=== PATIENT | male | born 1980 | race Caucasian/White ===

== ENCOUNTER 2023-04-09 02:14 | Emergency (ER) | payer BC ==
[~2023-04-09] VITALS: Ht 172.7 cm; Wt 109.1 kg
[2023-04-09 02:16] VITALS: TEMP 98.1
[2023-04-09] MEDS ORDERED: normal saline 1000ml 1,000 ML IV ONE ×2 (02:30→04:10)
[2023-04-09] MEDS ORDERED: ketorolac trometh. 30mg/ml inj. IV ONE (02:30)
[2023-04-09] MEDS ORDERED: ondansetron/PF 4mg/2ml inj IV ONE (02:35)
[2023-04-09 02:44] LABS: BASOPHILS # (AUTO) 0.1 X10'3 (0-0.2); BASOPHILS % (AUTO) 0.5 % (0-1); EOSINOPHILS # (AUTO) 0.1 X10'3 (0-0.9); EOSINOPHILS % (AUTO) 1.4 % (0-6); HEMATOCRIT 42.5 % (42.0-52.0); HEMOGLOBIN 14.4 g/dl (14.0-17.9); LYMPHOCYTES % (AUTO) 49.5 % (21-51); MEAN CORPUSCULAR HEMOGLOBIN 29.9 PG (27.0-31.0); MEAN CORPUSCULAR HGB CONC 33.8 g/dL (33.0-36.5); MEAN CORPUSCULAR VOLUME 88.6 FL (78-98); MEAN PLATELET VOLUME 7.8 FL (7.4-10.4); MONOCYTES % (AUTO) 9.6 % (2-12); NEUTROPHILS # (AUTO) 3.9 X10'3 (1.8-7.7); PLATELET COUNT 378 X10'3 (140-440); RED CELL DISTRIBUTION WIDTH 12.7 % (11.5-14.5); WHITE BLOOD COUNT 10.1 X10'3 (4.5-11.0)
[2023-04-09] MEDS ORDERED: HYDROmorphone inj. 0.5 MG/0.5 ML DISP.SYRIN IV ONE ×2 (02:55→03:45)
[2023-04-09 02:58] LABS: ALANINE AMINOTRANSFERASE 36 U/L (12-78); ALBUMIN 3.7 G/DL (3.4-5.0); ALBUMIN/GLOBULIN RATIO 1.1 (1.1-1.5); ALKALINE PHOSPHATASE 84 IU/L (46-116); ANION GAP 8 (8-16); ASPARTATE AMINO TRANSFERASE 18 U/L (10-37); BILIRUBIN,TOTAL 0.2 MG/DL (0.1-1.0); BLOOD UREA NITROGEN 21 MG/DL (7-18); BUN/CREATININE RATIO 14.8 (10.0-20.0); CALCIUM 8.3 MG/DL (8.5-10.1); CHLORIDE 103 MMOL/L (99-107); CREATININE 1.42 MG/DL (0.60-1.10); GLUCOSE 123 MG/DL (70-104); LIPASE 36 U/L (16-77); POTASSIUM 3.4 MMOL/L (3.5-5.1); SODIUM 139 MMOL/L (135-145); TOTAL CARBON DIOXIDE 28.2 MMOL/L (24-32); eCRCL 66 ML/MIN; eGFR 55 ML/MIN
[2023-04-09] MEDS ORDERED: meperidine/PF 50mg/ml syringe IV ONE (04:25)
[2023-04-09 05:02] VITALS: RESP 18
[2023-04-09] MEDS ORDERED: HYDR-3965 PO (05:35)
[2023-04-09] MEDS ORDERED: IBUP-1984 PO (05:35)
[2023-04-09] MEDS ORDERED: FLO0.4C PO (05:35)
[2023-04-09 05:54] LABS: ALBUMIN 3.4 G/DL (3.4-5.0); ANION GAP 7 (8-16); BLOOD UREA NITROGEN 21 MG/DL (7-18); BUN/CREATININE RATIO 14.1 (10.0-20.0); CALCIUM 7.7 MG/DL (8.5-10.1); CHLORIDE 108 MMOL/L (99-107); CREATININE 1.49 MG/DL (0.60-1.10); GLUCOSE 125 MG/DL (70-104); SODIUM 141 MMOL/L (135-145); TOTAL CARBON DIOXIDE 25.8 MMOL/L (24-32); eCRCL 62 ML/MIN; eGFR 52 ML/MIN
[2023-04-09 06:05] VITALS: BP 115/89; PULSE 86; O2SAT 97
== END 2023-04-09 06:06 | disposition home or self-care (01) ==
LOC: ER 02:15
DX: N20.0 Calculus of kidney (principal); R11.2 Nausea with vomiting, unspecified; Z88.5 Allergy status to narcotic agent; Z79.899 Other long term (current) drug therapy
CPT/HCPCS: 36415; 74176; 80048; 80053; 83690; 85025; 93005; 96361; 96374; 96375; 96376; 99285; J1170; J1885; J2175; J2405; J7030; A4615

== ENCOUNTER 2025-01-29 01:36 | Inpatient (IN) | payer BC ==
[~2025-01-29] VITALS: Ht 172.7 cm; Wt 115.0 kg
[2025-01-29 01:52] LABS: MEAN PLATELET VOLUME 7.7 FL (7.4-10.4); RED CELL DISTRIBUTION WIDTH 12.8 % (11.5-14.5)
--- NOTE | 2025-01-29 02:00 | Physician Documentation ---
History of Present Illness ~ Chief Complaint: Flank Pain Stated Complaint: POSS KIDNEY STONES Time Seen by MD: 01:57 Mode of Arrival: POV HPI Patient presents to the emergency room for evaluation of right-sided flank pain onset 1 hour prior to arrival. Patient states this feels similar to previous kidney stone. He has had nothing for the pain. Medication Reconciliation Allergies: Coded Allergies: morphine (Verified Allergy, Unknown, PSYCHOSIS, 01/29/25) Review of Systems ROS All review of systems negative except as per HPI Physical Exam Vital Signs: Temperature: 97.1, Source: Oral, Heart Rate: 69, Respiratory Rate: 10, BP: 133/83, Pulse Oximetry: 100, Weight: 115.000 Oxygen Flow Rate: 0 Physical Exam General: Patient is awake, alert, oriented x4 in moderate distress Head: Normocephalic and atraumatic. Eyes: Conjunctival normal. EOMI. PERRL. ENT: Mucous membranes moist. Neck: Supple, trachea is midline. Chest: Clear to auscultation bilaterally without rales, rhonchi, or wheezes. There is no accessory muscle use or retractions. Cardiac: Tachycardic and regular without murmurs, gallops, or rubs. Abd: Soft, nondistended, nontender, with normoactive bowel sounds. No guarding, rebound, or rigidity. Back: Noted right-sided CVA tenderness to palpation Progress Results/Orders Results/Orders Orders - LUIS MIGUEL SCHILLING MD Urinalysis, Cult If Indicated (01/29/25 01:40) Completed Orders - LUIS MIGUEL SCHILLING MD Cbc/Diff (01/29/25 01:40) BMP (01/29/25 01:40) Lipase (01/29/25 01:40) CMP (01/29/25 01:40) Ketorolac Trometh 15mg/Ml Vial (Toradol (01/29/25 02:00) Fentanyl/Pf (Fentanyl 0.05 Mg/Ml Syringe (01/29/25 02:00) Ondansetron Inj. (Zofran 4mg/2ml Vial) (01/29/25 02:00) Medications Received in ER Medications (Trade) Dose Ordered Sig/Valerio Route PRN Reason Start Time Stop Time Status Last Admin Dose Admin (Toradol injection) 15 mg ONCE ONCE IV 01/29/25 02:00 01/29/25 02:01 DC 01/29/25 02:07 15 MG (fentaNYL 0.05 MG/ML syringe) 50 mcg ONCE ONCE IV 01/29/25 02:00 01/29/25 02:01 DC 01/29/25 02:08 50 MCG (Zofran 4mg/2ml vial) 8 mg ONCE ONCE IV 01/29/25 02:00 01/29/25 02:01 DC 01/29/25 02:07 8 MG Vital Signs 01/29/25 01/29/25 01:38 01:49 Temp 97.1 97.1 Pulse 82 69 Resp 18 10 B/P (MAP) 163/102 133/83 (100) Pulse Ox 99 100 O2 Flow Rate 0 0 Laboratory Tests Test 01/29/25 01:46 White Blood Count 7.7 Red Blood Count 4.92 Hemoglobin 14.4 Hematocrit 42.8 Mean Corpuscular Volume 86.9 Mean Corpuscular Hemoglobin 29.3 Mean Corpuscular Hemoglobin Concent 33.7 Red Cell Distribution Width 12.8 Platelet Count 364 Mean Platelet Volume 7.7 Neutrophils (%) (Auto) 36.6 L Lymphocytes (%) (Auto) 51.2 H Monocytes (%) (Auto) 10.3 Eosinophils (%) (Auto) 1.4 Basophils (%) (Auto) 0.5 Neutrophils # (Auto) 2.8 Lymphocytes # (Auto) 4.0 Monocytes # (Auto) 0.8 Eosinophils # (Auto) 0.1 Basophils # (Auto) 0.0 CBC Comment Sodium Level 143 Potassium Level 4.2 Chloride Level 108 H Carbon Dioxide Level 28.9 Anion Gap 6 L Blood Urea Nitrogen 19 H Creatinine 1.20 H Estimated GFR/1.73 m2 66 BUN/Creatinine Ratio 15.8 Glucose Level 107 H Calcium Level 8.9 Total Bilirubin 0.3 Aspartate Amino Transf (AST/SGOT) 16 Alanine Aminotransferase (ALT/SGPT) 27 Alkaline Phosphatase 93 Total Protein 7.4 Albumin 3.9 Globulin 3.5 Albumin/Globulin Ratio 1.1 Lipase > 375 H Chemistry Comments Medical Decision Making Findings Patient presents to the emergency room for evaluation of abdominal pain. Differentials include but are not limited to gastritis cholecystitis pancreatitis diverticulitis kidney stone pyelonephritis small-bowel obstruction therefore emergent labs ordered. Patient is suffering from pancreatitis. He does not endorse significant amount of alcohol consumption. Unknown cause for patient's pancreatitis. Liver enzymes are reassuring. We will admit for further investigation. Departure Admitted to Inpatient Unit: yes, to hospitalist Impression: Primary Impression: Pancreatitis Condition: Guarded Referrals: NO PRIMARY CARE PROVIDER (PCP) Signature Scribe Signature: No scribe Attestation: The note accurately reflects work and decisions made by me.Luis Miguel Schilling MD 01/29/25 02:41 LUIS MIGUEL SCHILLING MD Jan 29, 2025 01:59
[2025-01-29 02:07] LABS: CREATININE 1.20 MG/DL (0.60-1.10); TOTAL CARBON DIOXIDE 28.9 MMOL/L (24-32); eCRCL 76 ML/MIN; eGFR 66 ML/MIN
[2025-01-29] MEDS: ondansetron/PF 4mg/2ml inj IV ONE ×2 (02:07→16:31)
[2025-01-29] MEDS: ketorolac trometh 15mg/ml vial 15 MG/ML ML IV ONE (02:07)
[2025-01-29] MEDS: fentaNYL/PF 50MCG/1 ML 2ML syringe IV ONE ×2 (02:08→02:53)
[2025-01-29] MEDS: normal saline 1000ML IV soln IVB ONE (02:51)
[2025-01-29] MEDS ORDERED: magnesium hydroxide 30ml (MOM) UD suspension PO PRN (03:35)
[2025-01-29] MEDS ORDERED: potassium Cl 40MEQ/1/2NS 520ml 520 ML IV PRN (03:35)
[2025-01-29] MEDS ORDERED: mag hydrox/Alum hydrox/simeth 30ml oral suspension PO PRN (03:35)
[2025-01-29] MEDS ORDERED: magnesium sulf-water 2g/50mL 50 ML IV PRN (03:35)
[2025-01-29] MEDS ORDERED: normal saline 1000ml 1,000 ML IV SCH (03:35)
[2025-01-29] MEDS ORDERED: magnesium sulf-water 4G/100mL 100 ML IV PRN (03:35)
[2025-01-29] MEDS ORDERED: potassium Cl 20 mEq SR tablet PO PRN ×2 (03:35)
[2025-01-29] MEDS ORDERED: magnesium Cl slow-release 64mg tablet PO PRN (03:35)
--- NOTE | 2025-01-29 03:35 | ELECTROCARDIOGRAPH REPORT ---
[facility] Test Date: 2025-01-29 Test Time: 03:32:59 Pat Name: RONY LEIGH Department: EMERGENCY ROOM Room: ED 8 Gender: M Office Specialist: : 1980 Requested By: SHOSHANA MORENO Order Number: [id number] Reading MD: Measurements Intervals [place] Rate: 78 P: 48 WA: 153 QRS: 33 QRSD: 109 T: 5 QT: 388 QTc: 442 Interpretive Statements Sinus rhythm Low voltage, precordial leads Abnormal R-wave progression, early transition Please click the below link to view image of tracing.
--- NOTE | 2025-01-29 03:44 | HISTORY AND PHYSICAL-Residence ---
History & Physical Providers to CC Resident Creating Document: SHOSHANA MORENO RES ~ History of Present Illness Reason for Admit\Complaint: Left flank pain History of Present Illness The 44-year-old male presented to the ER with a chief concern of worse left flank pain that started at 12:30 a.m.. Mentioned that he was resting in the bed but not completely asleep and suddenly felt the pain. It is squeezing type of pain and then it gets worse like sharp shooting kind of pain and so his drove him to the ER. Has nausea but denies any vomiting. Denies any dysuria, blood in urine, nausea or vomiting, diarrhea, chest pain shortness of breaths or any fall. Mentioned that he had recurrent stones on the right side and the last one was about few years back. Never had any procedures likely lithotripsy or ureteral stent placement done for it and denies any hydroureteronephrosis in the past. Mentioned that he was heavy alcoholic about 15-20 years back but did not drink any alcohol in the last few days. Had cholecystectomy about 10 years back for recurrent abdominal pain. Did not eat or drink anything since the pain started and so is unsure if the pain is affected by food intake. He does not want to take morphine as it makes him psychotic but he he has almost screaming in the ER with pain and so received fentanyl Allergies: Coded Allergies: morphine (Verified Allergy, Unknown, PSYCHOSIS, 01/29/25) Home Medications Home Medications Active Past Medical History Past Medical History History of tobacco abuse, meth abuse, cocaine abuse, marijuana abuse, LSD, speed, alcohol abuse, recurrent right renal stones, recurrent unspecified abdominal pain-resolved with a cholecystectomy Past Surgical History Surgical History Comment Cholecystectomy, sinus surgery Past Social History Social History Comment Lives with his . His last smoke of cigarette was about 20 years back and smoked a pack of cigarettes per day for 2-3 years before that. He used to drink heavily (12-13 beers and whiskey every day) for few years about 20 years back and now, drinks one beer once a month. Remote history of smoking and snorting meth, cocaine, marijuana, LSD and speed. The last time he used any recreational drug was in 2000. Denies any IV drug abuse ROS ROS Constitutional: No fever, chills, dizziness, weakness, weight gain or loss Eyes: No pain, erythema, discharge, blurring of vision ENT: No sore throat, epistaxis, tinnitus Cardiovascular: No chest pain, chest pressure, chest discomfort, palpitations, syncope, lower extremity edema, paroxysmal nocturnal dyspnea Respiratory: No shortness of breath, cough, hemoptysis Gastrointestinal: Nausea present. Normal appetite. No vomiting, diarrhea, constipation, hematemesis, abdominal pain, bloating, melena or fresh blood Genitourinary: Left flank pain present. No frequency, urgency, nocturia, hematuria or dysuria Musculoskeletal: Left flank pain present. No arthralgias Integumentary: No change in skin, hair, nails. No swelling, bruising, abrasions Neurologic: No headache, neck pain, numbness or tingling of the extremities, weakness Psychiatric: No delusions, depression, loss of interest in normal activity or change in sleep pattern, hallucinations, suicidal ideations Endocrine: No fatigue, weakness, polydipsia, polyuria, change in appetite, heat or cold intolerance, sweating, dry skin Hematological: No bleeding, petechiae, bruising Allergies: No asthma or urticaria Exam Vitals: Vital Signs Date Time Temp Pulse Resp B/P (MAP) Pulse Ox O2 Delivery O2 Flow Rate FiO2 01/29/25 03:10 97.1 72 9 131/90 (104) 98 0 General: Alert and oriented x4. In acute distress due to pain HEENT: Normocephalic and atraumatic. Pupils equal round reactive to light and accommodation. Extraocular movements intact. Oral and nasal mucosa moist Neck: Trachea is in midline. No masses or JVD Chest: Bilateral normal breath sounds. No crackles, rhonchi or wheezes Cardiovascular: Regular rate and rhythm. S1-S2 normal. No rubs or murmurs Abdomen: Soft, nontender nondistended. Normoactive bowel sounds. Tenderness in the left lower flank region. No costovertebral angle tenderness Extremities: No cyanosis, clubbing or edema Central Nervous System: No gross sensory or motor deficits. CN II to XII grossly. No cerebellar signs Musculoskeletal: No significant spinal abnormalities Skin: Warm and dry Diagnostic Data Last Recorded Lab Results: 01/29/25 0146 01/29/25 0146 Advance Care Planning Advanced Care plannin - 30 Minutes Additional Plan Left flank pain Possible renal colic History of recurrent right renal stones Pending UA and urine tox Received fentanyl 50 mg IV once, fentanyl 75 mg IV once and Toradol 15 mg IV once in the ER Does not want to take morphine as it maximum psychotic Continue Jackson 5/325 mg and Jackson 10/325 mg p.o. q.4h p.r.n. for moderate to severe pain respectively Started Toradol 30 mg IM q.6h p.r.n. for pain. Likely has CKD stage II. Discontinue Toradol in a day or two Started tamsulosin 0.4 mg PO HS Started Ringer's lactate at 100 cc/hour Received 2 L normal saline bolus in the ER Started clear liquid diet. Advance as tolerated Elevated lipase level Denies drinking alcohol in the last few days Pending urine Tox and ethanol level No epigastric or left upper quadrant tenderness or vomitings. Nausea present Total bilirubin, AST , ALT and alkaline phosphatase within normal limits. S/p cholecystectomy about 10 years back Pending abdomen/pelvis CT Follow up lipase levels daily Lipid panel ordered Possible ELISABETH on CKD Continue IV fluids Continue to monitor RFTs History of polysubstance abuse-meth, cocaine, marijuana, LSD, speed Urine tox ordered Mentioned that he is clean since 2000 # Pending chest x-ray, EKG Shoshana Moreno MD Internal Medicine Resident, PGY 3 Date of Service: Jan 29, 2025 Billing Provider: DESTINY LEE MD Addendum Attestation I agree with the residents assessment and plan as below: Plan: empiric abx follow cultures CTAP pain control with NSAID CCT 50 min using HIPPA compliant A/V technology SHOSHANA MORENO RES Jan 29, 2025 03:44 DESTINY LEE MD Jan 29, 2025 04:51
[2025-01-29] MEDS: HYDROcodone/acetaminophen 10/325mg tab PO PRN (04:11)
[2025-01-29 04:23] LABS: ETHANOL < 10 MG/DL (<10)
--- NOTE | 2025-01-29 04:48 | RADIOLOGY REPORT ---
Exam: CT CT ABDOMEN PELVIS History: assess pancreatitis Comparison Study: CT CT ABDOMEN PELVIS on DOS: 04/09/23 Technique: Multidetector spiral CT of the abdomen was performed from lung bases to pubic symphysis. Imaging was performed without IV contrast. Axial, coronal and sagittal multiplanar reformats were obtained from the axial data set by the technologist. Radiation Dose : 1. Abdomen/Pelvis: CTDIvol 32.19 mGy, DLP 1951.73 mGy*cm. Findings: Evaluation of solid organs is limited due to lack of intravenous contrast use. Lung Bases: No acute or significant lung base finding. Normal heart size. No pleural or pericardial effusion. Liver: The liver is normal in size. No focal lesions. Gallbladder and Biliary Tree: Gallbladder not clearly identified. Spleen: Unremarkable Pancreas: The pancreas is grossly normal in appearance. Adrenal Glands: Unremarkable Kidneys: Moderate left hydroureteronephrosis and perinephric inflammatory change secondary to a partially obstructing distal ureteral calculus measuring approximately 5 mm in diameter. Additional punctate nonobstructive bilateral pelvocaliceal calculi noted. Bladder: Grossly unremarkable for degree of distention. Bowel: The stomach is grossly normal in appearance. Small bowel and colon are normal in caliber and distribution. The appendix is normal. Ascites: Absent Lymphadenopathy: No mesenteric, retroperitoneal or periportal lymphadenopathy. Abdominal Wall and Mesentery: Unremarkable. Vasculature: The visualized abdominal aorta is normal in size and caliber. Evaluation of abdominal and pelvic vessels is limited due to lack of intravenous contrast. Pelvic Organs: Unremarkable Musculoskeletal: No aggressive focal bony lesions, acute fractures or dislocation. IMPRESSION: 1. Moderate left hydroureteronephrosis and perinephric inflammatory change secondary to a partially obstructing distal ureteral calculus measuring approximately 5 mm in diameter. 2. Additional punctate nonobstructive bilateral pelvocaliceal calculi noted. 3. The pancreas is grossly normal in appearance. Radiation optimization: All CT scans at this facility use at least one of these dose optimization techniques: automated exposure control mA and/or kV adjustment per patient size (includes targeted exams where dose is matched to clinical indication) or iterative reconstruction.
[2025-01-29 05:00] VITALS: BP 134/82; PULSE 82; RESP 20; TEMP 97.4; O2SAT 98
[2025-01-29] MEDS: ketorolac trometh 30MG/ML vial 30 MG/ML VIAL IV PRN (05:18)
[2025-01-29] MEDS: ringers solution, lacted 1,000 ML IV SCH (05:26)
[2025-01-29 06:07] LABS: CHOL/HDL RATIO 4.4 (0.00-4.99); LDL CHOLESTEROL 120 MG/DL (50-100)
[2025-01-29] MEDS: K and/or MAG REPLACEMENT MC SCH (08:00)
[2025-01-29] MEDS: HYDROcodone/acetaminophen 5mg/325mg tablet PO PRN (11:57)
[2025-01-29] MEDS: ondansetron/PF 4mg/2ml inj IV PRN (12:03)
[2025-01-29] MEDS ORDERED: ondansetron/PF 4mg/2ml inj IM ONE (16:05)
[2025-01-29 18:00] VITALS: BP 125/78; PULSE 52; RESP 16; TEMP 97.4; O2SAT 94
[2025-01-29] MEDS: enoxaparin 40mg/0.4ml syringe SQ SCH (21:02)
[2025-01-29 22:00] VITALS: BP 108/50; PULSE 67; RESP 19; TEMP 98.3; O2SAT 98
[2025-01-30 05:30] LABS: MEAN PLATELET VOLUME 7.8 FL (7.4-10.4); RED CELL DISTRIBUTION WIDTH 13.1 % (11.5-14.5)
[2025-01-30 05:48] LABS: APTT 32 SECONDS (22-32); INR 1.1 INR
[2025-01-30 05:55] LABS: CHOL/HDL RATIO 4.5 (0.00-4.99); CREATININE 1.84 MG/DL (0.60-1.10); LDL CHOLESTEROL 100 MG/DL (50-100); PHOSPHORUS 3.7 MG/DL (2.3-4.5); TOTAL CARBON DIOXIDE 28.5 MMOL/L (24-32); eCRCL 50 ML/MIN; eGFR 40 ML/MIN
[2025-01-30 06:00] VITALS: BP 116/62; PULSE 74; RESP 17; TEMP 97.9; O2SAT 93
[2025-01-30 06:10] LABS: LEUKOCYTE ESTERASE ,URINE NEGATIVE (Neg); NITRITES, URINE NEGATIVE (Neg); OCCULT BLOOD,URINE NEGATIVE (Neg)
[2025-01-30 06:15] LABS: UA COLLECTION TYPE CLN CATCH MIDSTREAM
[2025-01-30 06:32] LABS: URINE AMPHETAMINE SCREEN NEGATIVE (Neg); URINE BARBITUATE SCREEN NEGATIVE (Neg); URINE BENZODIAZEPINES SCREEN NEGATIVE (Neg); URINE CANNABINOID SCREEN NEGATIVE (Neg); URINE COCAINE SCREEN NEGATIVE (Neg); URINE METHADONE SCREEN NEGATIVE (Neg); URINE OPIATE SCREEN POSITIVE (Neg); URINE PHENCYCLIDINE SCREEN NEGATIVE (Neg)
--- NOTE | 2025-01-30 07:52 | CONSULTATION ---
DATE OF CONSULTATION: 01/29/2025 DICTATING PHYSICIAN: Rizwan Waller MD HISTORY OF PRESENT ILLNESS: A 44-year-old male with a history of nephrolithiasis, presented himself to the Emergency Room this morning with several hours of acute onset left-sided flank pain. He has a history of stones and has passed 2 or 3 stones in his lifetime and never required an intervention. This time around, he had severe pain and presented himself to the Emergency Room and I was asked to consult when he was seen to be passing a stone. He was admitted apparently for pain control. PAST SURGICAL HISTORY: Cholecystectomy and spinal surgery. PAST MEDICAL HISTORY: Nephrolithiasis with also a history of tobacco abuse, methamphetamine abuse, cocaine abuse, marijuana abuse, LSD, and alcohol abuse. ALLERGIES: MORPHINE. MEDICATIONS: None. SOCIAL HISTORY: He lives with his . He denies cigarette smoking for about 20 years. He has a history of alcohol abuse, but none for 20 years. REVIEW OF SYSTEMS: 10-point review of systems negative except for HPI. PHYSICAL EXAMINATION: VITAL SIGNS: Blood pressure is 131/90, respirations 18, pulse is 72, temperature 97.1. GENERAL: In general, he is in mild distress, primarily from nausea. LABORATORY DATA: White count is 7000. BUN and creatinine are 19 and 1.2. IMAGING: CT scan is reviewed in detail revealed a firm 4 mm calculus in the left distal ureter about 3 cm proximal to the ureterovesical junction. ASSESSMENT: Pain secondary to small left distal ureteral calculus. RECOMMENDATIONS: The patient is a candidate for expulsive therapy to pass the stone. Recommend Flomax, hydration, strain urine, and discharge to home if pain allows. We will follow progress. Rizwan Waller MD TID: [id number] RECEIPT: [id number] ISABEL/LESVIA
[2025-01-30 08:00] VITALS: RESP 14; O2SAT 93
[2025-01-30 10:00] VITALS: BP 116/71; PULSE 73; RESP 15; TEMP 98.5; O2SAT 92
[2025-01-30] MEDS: ringers solution, lacted 1,000 ML IV ONE (10:59)
--- NOTE | 2025-01-30 13:28 | PROGRESS NOTE ---
Daily Progress Note Providers to CC ~ feels better today less pain in the left flank tolerating medication fine Central Line/PICC still needed: No Cortes-Non Protocol Cortes Indications Met/Not Met: F/C Indications Not Met Antibiotic Timeout Antibiotic Ordered?: Yes MRSA Education MRSA Education Provided to pt: Yes Subjective As above Objective Vital Signs Date Time Temp Pulse Resp B/P (MAP) Pulse Ox O2 Delivery O2 Flow Rate FiO2 01/30/25 10:00 98.5 73 15 116/71 (86) 92 Room Air 01/29/25 04:18 0 Vital signs, stable ,afebrile. Pulse Oximetry reflects adequate oxygenation. General: well developed, well nourished. Awake , alert, and oriented x4, resting comfortably in the bed, in no acute distress . Skin: Warm, dry, no pallor, no rash or petechiae. HEENT: Atraumatic, normocephalic, EOMI, anicteric sclera B; pink conjunctiva; PERRLA, normal oropharynx, moist oral and nasal mucosa. Tympanic membrane , nose , throat clear. Neck: Trachea midline. Supple, full range of motion, no JVD, bruit , hepatojugular reflex , lymphadenopathy or masses, or other lesions Cardiac: Regular rhythm, regular rate no murmurs, rubs, or gallops. Normal S1 and S2, no S3 noticed. PMI is normal. Respiratory: Equal breath sounds bilaterally, no tachypnea; lungs clear to auscultation bilaterally, no wheezing ,rub or rales, or crackles. Chest wall is symmetric and without deformity. No signs of trauma. Chest wall is nontender. No signs of respiratory distress. Resonance is normal upon percussion bilaterally. Gastrointestinal: Abdomen symmetric, non-distended, soft, non-tender, normal bowel sounds x4 quadrant, normoactive, no hepatosplenomegaly , no masses , no bruit, no flank pain bilaterally. No voluntary guarding, rebound, or rigidity. No tenderness to percussion. No pulsatile masses. Equal femoral pulses. No Alcocer's sign or McBurney point tenderness. Back; no CVA tenderness bilaterally, no deformities. Neck and back are without deformity as well. No tenderness noted on palpation of the spinous processes. Spinous processes are midline. Cervical, thoracic, and lumbar paraspinal muscles are not tender and are without spasm. : normal external genitalia, without lesions, swelling, masses or tenderness. Musculoskeletal: Extremities, normal range of motion, non-tender, muscle strength 5/5 x 4. Negative Homans signs bilaterally on lower extremity. Distal pulses full symmetrical, no clubbing, cyanosis , edema. Neurological: Speech is clear, alert, and oriented x 4. No motor or sensory deficit, deep tendon reflexes normal, cerebellar intact. Cranial nerves II-XII intact. Psych: Alert and or appropriate, normal affect. Vascular: Good distal pulses, which are equal x4; capillary refill less than 2 seconds. Lymphatic, no lymphadenopathy. Result Diagram: 01/30/25 0505 01/30/25 0505 Coagulation Studies Laboratory Tests Test 01/30/25 05:05 Prothrombin Time 10.8 SECONDS (9.0-12.0) INR International Normalized Ratio 1.1 INR Activated Partial Thromboplast Time 32 SECONDS (22-32) Coagulation Comments Problem\Assessment\Plan Assessment/ Plan Left flank pain Acute left side renal colic History of recurrent right renal stones Appreciate urologist Assistance and expertise Completed UA and urine tox Received fentanyl 50 mg IV once, fentanyl 75 mg IV once and Toradol 15 mg IV once in the ER Does not want to take morphine as it maximum psychotic Continue [place] 5/325 mg and [place] 10/325 mg p.o. q.4h p.r.n. for moderate to severe pain respectively Started Toradol 30 mg IM q.6h p.r.n. for pain. Likely has CKD stage II. Discontinue Toradol in a day or two Started tamsulosin 0.4 mg PO HS Started Ringer's lactate at 100 cc/hour Received 2 L normal saline bolus in the ER Started clear liquid diet. Advance as tolerated Acute pancreatitis Denies drinking alcohol in the last few days Pending urine Tox and ethanol level No epigastric or left upper quadrant tenderness or vomitings. Nausea present Total bilirubin, AST , ALT and alkaline phosphatase within normal limits. S/p cholecystectomy about 10 years back Completed abdomen/pelvis CT Follow up lipase levels daily Lipid panel ordered Possible ELISABETH on CKD Continue IV fluids Continue to monitor RFTs History of polysubstance abuse-meth, cocaine, marijuana, LSD, speed Urine tox ordered Mentioned that he is clean since 2000 Sepsis Screening Reassessment Date: Jan 30, 2025 Date of Service: Jan 30, 2025 Billing Provider: WASHINGTON KIM MD Common Visit Codes: [id number] INP/OBS CARE(HIGH) WASHINGTON KIM MD Jan 30, 2025 13:28
[2025-01-30] MEDS ORDERED: TAMS-55 PO (14:42)
[2025-01-30] MEDS ORDERED: HYDR-3965 PO (14:42)
--- NOTE | 2025-01-30 16:57 | DISCHARGE SUMMARY ---
Discharge Summary Providers to Feels better today asking to be discharged home, was cleared for discharge by urologist as well ~ Discharge Summary Assessment BILATERAL KIDNEY STONES Left ureter calculus Left side moderate hydronephrosis Left-sided renal colic acute Acute kidney injury secondary to vasomotor nephropathy Acute pancreatitis History of polysubstance abuse, cocaine LSD speed amphetamine Admission Diagnosis: right flank pain Admission Diagnosis Comment: BILATERAL KIDNEY STONES Left ureter calculus Left side moderate hydronephrosis Left-sided renal colic acute Acute kidney injury secondary to vasomotor nephropathy Acute pancreatitis History of polysubstance abuse, cocaine LSD speed amphetamine Hospital Course DATE OF ADMISSION: January 29, 2025 DATE OF DISCHARGE: January 30, 2025 Discharge Diagnosis\Comment: BILATERAL KIDNEY STONES Left ureter calculus Left side moderate hydronephrosis Left-sided renal colic acute Acute kidney injury secondary to vasomotor nephropathy Acute pancreatitis History of polysubstance abuse, cocaine LSD speed amphetamine Operations\Procedures: Non Consultants: Urologist Complications: Non Condition on DC: Stable Discharge Summary: The 44-year-old male presented to the ER with a chief concern of worse left flank pain that started at 12:30 a.m.. Mentioned that he was resting in the bed but not completely asleep and suddenly felt the pain. It is squeezing type of pain and then it gets worse like sharp shooting kind of pain and so his drove him to the ER. Has nausea but denies any vomiting. Denies any dysuria, blood in urine, nausea or vomiting, diarrhea, chest pain shortness of breaths or any fall. Mentioned that he had recurrent stones on the right side and the last one was about few years back. Never had any procedures likely lithotripsy or ureteral stent placement done for it and denies any hydroureteronephrosis in the past. Mentioned that he was heavy alcoholic about 15-20 years back but did not drink any alcohol in the last few days. Had cholecystectomy about 10 years back for recurrent abdominal pain. Did not eat or drink anything since the pain started and so is unsure if the pain is affected by food intake. He does not want to take morphine as it makes him psychotic but he he has almost screaming in the ER with pain and so received fentanyl; after admission patient was extensively evaluated treated, as well as consulted by urology DrGabriela, today he is feeling better asking to be discharged home for emergency family reasons, I explained to the patient to continue inpatient treatment anemia palpation, patient elected to be discharged , he understood, risk of severe complications and . He will be discharged in stable condition recommended to return to emergency department if condition worsens, medication reconciled, follow-up PCP Urology in two days, today on physical exam Vital signs, stable ,afebrile. Pulse Oximetry reflects adequate oxygenation. General: well developed, well nourished. Awake , alert, and oriented x4, resting comfortably in the bed, in no acute distress . Skin: Warm, dry, no pallor, no rash or petechiae. HEENT: Atraumatic, normocephalic, EOMI, anicteric sclera B; pink conjunctiva; PERRLA, normal oropharynx, moist oral and nasal mucosa. Tympanic membrane , nose , throat clear. Neck: Trachea midline. Supple, full range of motion, no JVD, bruit , hepatojugular reflex , lymphadenopathy or masses, or other lesions Cardiac: Regular rhythm, regular rate no murmurs, rubs, or gallops. Normal S1 and S2, no S3 noticed. PMI is normal. Respiratory: Equal breath sounds bilaterally, no tachypnea; lungs clear to auscultation bilaterally, no wheezing ,rub or rales, or crackles. Chest wall is symmetric and without deformity. No signs of trauma. Chest wall is nontender. No signs of respiratory distress. Resonance is normal upon percussion bilaterally. Gastrointestinal: Abdomen symmetric, non-distended, soft, non-tender, normal bowel sounds x4 quadrant, normoactive, no hepatosplenomegaly , no masses , no bruit, no flank pain bilaterally. No voluntary guarding, rebound, or rigidity. No tenderness to percussion. No pulsatile masses. Equal femoral pulses. No Alcocer's sign or McBurney point tenderness. Back; no CVA tenderness bilaterally, no deformities. Neck and back are without deformity as well. No tenderness noted on palpation of the spinous processes. Spinous processes are midline. Cervical, thoracic, and lumbar paraspinal muscles are not tender and are without spasm. : normal external genitalia, without lesions, swelling, masses or tenderness. Musculoskeletal: Extremities, normal range of motion, non-tender, muscle strength 5/5 x 4. Negative Homans signs bilaterally on lower extremity. Distal pulses full symmetrical, no clubbing, cyanosis , edema. Neurological: Speech is clear, alert, and oriented x 4. No motor or sensory deficit, deep tendon reflexes normal, cerebellar intact. Cranial nerves II-XII intact. Psych: Alert and or appropriate, normal affect. Vascular: Good distal pulses, which are equal x4; capillary refill less than 2 seconds. Lymphatic, no lymphadenopathy. *Problems/Diagnosis: (1) Calculus of kidney Status: Acute (2) Renal colic Status: Acute (3) Pancreatitis Status: Acute Total Time Spent on D/C: > 30 Minutes Date of Service: Jan 30, 2025 Billing Provider: WASHINGTON KIM MD Common Visit Codes: 26201-EJW/OBS DISCH DAY >30min WASHINGTON KIM MD Jan 30, 2025 16:57
--- NOTE | 2025-01-31 04:43 | PROGRESS NOTE ---
DATE: 01/30/2025 DICTATING PHYSICIAN: Rizwan Waller MD SUBJECTIVE: Over 24-hour events none. Pain scores are low at 0-3. Vitals are stable. LABORATORY DATA: White count is 6.7. Creatinine is up slightly to 1.84. ASSESSMENT: Small distal ureteral calculus. I believe the patient is a good candidate for outpatient management. PLAN: Okay to discharge home. He will follow up in the office to see me in about 1 week with a KUB prior. Rizwan Waller MD TID: [id number] RECEIPT: [id number] MAREK
== END 2025-01-30 15:40 | disposition home or self-care (01) | DRG 438 ==
LOC: ER 01:36 → ED HOLD 03:20 → ORTHO 4S 04:58
PROVIDERS: ADMIT Internal Medicine; ATTEND Family Medicine
DX: K85.90 Acute pancreatitis without necrosis or infection, unspecified (principal); N17.0 Acute kidney failure with tubular necrosis; N13.2 Hydronephrosis with renal and ureteral calculous obstruction; F19.10 Other psychoactive substance abuse, uncomplicated; Z88.5 Allergy status to narcotic agent; Z90.49 Acquired absence of other specified parts of digestive tract
CPT/HCPCS: 36415; 74176; 80053; 80061; 80305; 80320; 81003; 83036; 83605; 83690; 83735; 84100; 84132; 85025; 85610; 85730; 87040; 87081; 93005; 96374; 96375; 99285; G0378; J1171; J1650; J1885; J2405; J3010; J7030; J7120

== ENCOUNTER 2025-02-01 19:13 | Inpatient (IN) | payer BC ==
[~2025-02-01] VITALS: Ht 172.7 cm; Wt 104.3 kg
[~2025-02-01 19:13] MED LIST: HYDR-3965 PO; TAMS-55 PO
[2025-02-01 20:18] LABS: CREATININE 1.84 MG/DL (0.60-1.10); MEAN PLATELET VOLUME 8.5 FL (7.4-10.4); RED CELL DISTRIBUTION WIDTH 12.6 % (11.5-14.5); TOTAL CARBON DIOXIDE 27.9 MMOL/L (24-32); eCRCL 50 ML/MIN; eGFR 40 ML/MIN
[2025-02-01 21:46] LABS: LEUKOCYTE ESTERASE ,URINE NEGATIVE (Neg); NITRITES, URINE NEGATIVE (Neg); OCCULT BLOOD,URINE NEGATIVE (Neg)
[2025-02-01 21:53] LABS: UA COLLECTION TYPE CLN CATCH MIDSTREAM
[2025-02-01 21:54] LABS: MUCUS STRANDS MODERATE /LPF (Neg); SQUAMOUS EPITHELIAL CELL,UR NONE SEEN /LPF (FEW)
[2025-02-01] MEDS: ondansetron/PF 4mg/2ml inj IV ONE (23:03)
[2025-02-01] MEDS: normal saline 1000ml 1,000 ML IV ONE (23:03)
[2025-02-01] MEDS: ketorolac trometh 30MG/ML vial 30 MG/ML VIAL IV ONE (23:03)
[2025-02-02] VITALS (18 sets, daily range): BP systolic 115–153; BP diastolic 65–92; PULSE 60–96; RESP 12–18; TEMP 97.5–98.2; O2SAT 91–99
--- NOTE | 2025-02-02 00:33 | RADIOLOGY REPORT ---
Exam: CT CT ABDOMEN PELVIS W/ IV CONTRAST History: Pain, hx of renal calculi COMPARISON: CT CT ABDOMEN PELVIS on DOS: 01/29/25, CT CT ABDOMEN PELVIS on DOS: 04/09/23 Technique: Multidetector spiral CT of the abdomen and pelvis was performed from lung bases to pubic symphysis. Intravenous contrast was administered during this examination. Portal venous imaging was obtained. Axial, coronal and sagittal multiplanar reformats were performed by the technologist on a separate workstation. Radiation Dose : 1. Abdomen/Pelvis: CTDIvol 35.41 mGy, DLP 1868.53 mGy*cm. CONTRAST: Type of contrast: Omnipaque 300 Contrast injected: 100 ml Findings: Lung Bases: No acute or significant lung base finding. Normal heart size. No pleural or pericardial effusion. Liver: The liver is normal in size. No focal lesions. Normal hepatic vascular enhancement. Gallbladder and biliary Tree: Unremarkable Spleen: Unremarkable Pancreas: The pancreas is normal in appearance without focal lesions or abnormal enhancement. Adrenal Glands: Unremarkable Kidneys: Obstructing distal left ureters calculus measuring 4 mm resulting in mild hydronephrosis. Bladder: Unremarkable Bowel: The stomach is grossly normal in appearance. Small bowel and colon are normal in caliber and distribution. The appendix is not visualized; however, no secondary findings of acute appendicitis identified. Ascites: Absent Lymphadenopathy: No mesenteric, retroperitoneal or periportal lymphadenopathy. Abdominal wall and Mesentery: Unremarkable. Vasculature: The visualized abdominal aorta is normal in size and caliber. Abdominal and pelvic vessels demonstrate normal enhancement. Pelvic Organs: Unremarkable Musculoskeletal: No aggressive focal bony lesions, acute fractures or dislocation. IMPRESSION: Obstructing distal left ureteric calculus measuring 4 mm resulting in mild hydronephrosis. Radiation optimization: All CT scans at this facility use at least one of these dose optimization techniques: automated exposure control mA and/or kV adjustment per patient size (includes targeted exams where dose is matched to clinical indication) or iterative reconstruction.
--- NOTE | 2025-02-02 01:28 | Physician Documentation ---
History of Present Illness Chief Complaint: Flank Pain Stated Complaint: KIDNEY STONE Time Seen by MD: 22:53 HPI Patient is a 44-year-old male that presents to the emergency department for re- evaluation of renal calculi that he was admitted for last week. Reports after going home he has been unable to keep his pain under control he has been unable to keep down fluids or food in his urination has been greatly diminished. He is concerned that he will not be able to pass the stone as he is unable to keep down enough fluid to keep his urine output appropriate. Patient reports his pain at 10/10 current. Patient reports that he feels like his pain has worsened since his discharge from the hospital. Medication Reconciliation Allergies: Coded Allergies: morphine (Verified Allergy, Unknown, PSYCHOSIS, 02/01/25) Scheduled Tamsulosin Hcl* (Flomax*), 1 CAP PO DAILY Scheduled PRN Hydrocodone Bit/Acetaminophen 5/325 MG ([place] 5/325 MG), 1-2 TAB PO Q4-6 hours PRN for moderate or severe pain Review of Systems ROS As stated above in the HPI, otherwise all systems are reviewed and negative. Physical Exam Vital Signs: Temperature: 96.8, Source: Temporal, Heart Rate: 86, Respiratory Rate: 15, BP: 146/65, Pulse Oximetry: 99, Weight: 100.000 Physical Exam VITALS: Reviewed and as above. GENERAL: Alert, no apparent distress. GI: Soft, tender with palpation, bowels sounds present, no rebound, guarding, or rigidity. BACK: CVA tenderness present. MUSCULOSKELETAL No deformities, no edema SKIN: Warm and dry, no rash NEURO: Oriented x4, No motor or sensory deficit PSYCH: Normal mood and affect, no agitation Progress Results/Orders Results/Orders Orders - DUNIA BEARP Ct Abdomen Pelvis (02/01/25 23:17) Page Hospitalist (02/02/25 00:55) Completed Orders - DUNIA BEAR OPERATOR SPECIALIST COMMUNICATIONS Ondansetron Inj. (Zofran 4mg/2ml Vial) (02/01/25 22:50) Normal Saline 1000ml (0.9% Sodium Chlori (02/01/25 22:50) Ketorolac Trometh 30mg/Ml Vial (Toradol (02/01/25 22:50) Ct Abdomen Pelvis (02/01/25 23:17) Hydromorphone 1 Mg/Ml/Pf (Dilaudid Inj.) (02/02/25 00:55) Ondansetron Inj. (Zofran 4mg/2ml Vial) (02/02/25 00:55) Medications Received in ER Medications (Trade) Dose Ordered Sig/Valerio Route PRN Reason Start Time Stop Time Status Last Admin Dose Admin (Zofran 4mg/2ml vial) 4 mg ONCE ONCE IV 02/01/25 22:50 02/01/25 22:51 DC 02/01/25 23:03 4 MG Sodium Chloride 1,000 ml @ 1,000 mls/hr ONCE ONCE IV 02/01/25 22:50 02/01/25 23:49 DC 02/01/25 23:03 1,000 MLS/HR (Toradol inj. 30mg/ml) 30 mg ONCE ONCE IV 02/01/25 22:50 02/01/25 22:51 DC 02/01/25 23:03 30 MG Vital Signs 02/01/25 02/01/25 19:22 22:48 Temp 96.8 Pulse 89 86 Resp 15 15 B/P (MAP) 126/95 146/65 (92) Pulse Ox 100 99 Laboratory Tests Test 02/01/25 19:39 02/01/25 21:25 White Blood Count 10.9 Red Blood Count 4.79 Hemoglobin 14.4 Hematocrit 41.6 L Mean Corpuscular Volume 86.9 Mean Corpuscular Hemoglobin 30.0 Mean Corpuscular Hemoglobin Concent 34.5 Red Cell Distribution Width 12.6 Platelet Count 357 Mean Platelet Volume 8.5 Neutrophils (%) (Auto) 78.3 H Lymphocytes (%) (Auto) 12.2 L Monocytes (%) (Auto) 8.7 Eosinophils (%) (Auto) 0.4 Basophils (%) (Auto) 0.4 Neutrophils # (Auto) 8.5 H Lymphocytes # (Auto) 1.3 Monocytes # (Auto) 0.9 Eosinophils # (Auto) 0.0 Basophils # (Auto) 0.0 CBC Comment Sodium Level 142 Potassium Level 4.3 Chloride Level 103 Carbon Dioxide Level 27.9 Anion Gap 11 Blood Urea Nitrogen 16 Creatinine 1.84 H Estimated GFR/1.73 m2 40 BUN/Creatinine Ratio 8.7 L Glucose Level 97 Calcium Level 8.9 Total Bilirubin 0.9 Aspartate Amino Transf (AST/SGOT) 27 Alanine Aminotransferase (ALT/SGPT) 39 Alkaline Phosphatase 106 Total Protein 7.2 Albumin 3.5 Globulin 3.7 Albumin/Globulin Ratio 0.9 L Lipase 22 Chemistry Comments Urine Specimen Description Cln catch midstream Urine Color Yellow Urine Clarity Clear Urine pH 6.5 Urine Specific [place] 1.025 Urine Protein Trace Urine Glucose (UA) Negative Urine Ketones >=80 Urine Occult Blood Negative Urine Nitrite Negative Urine Bilirubin Moderate Urine Urobilinogen 2.0 H Urine Leukocyte Esterase Negative Urine RBC 0-2 Urine WBC 0-4 Urine Squamous Epithelial Cells None seen Urine Bacteria Few Urine Mucus Moderate Urine Culture Indicated Not ind Volume Urine Centrifuged 10 ml Urine Comment Medical Decision Making Findings Was discharged from the hospital on Sunday after being admitted for renal calculi and pain management. Patient presents again today with flank pain likely secondary to renal colic from likely non-obstructed non infected kidney stone. Patient reports that his pain is uncontrolled in the due to his nausea and vomiting he has been unable to keep down fluids and therefore his urine output has greatly diminished. Given history, exam, and work up I have patient's presentation is an exacerbation of previous symptoms and patient has not passed the renal stone and now has complication of dehydration nausea and uncontrolled pain. I have low suspicion for atypical appendicitis, genital torsion, acute cholecystitis, AAA, infected obstructed stone, pyelonephritis, or other emergent intraabdominal pathology. IV access established fluids administered. Pain treated in ED with Toradol Dilaudid little improvement. Patient patient appropriate for readmission at this time due to need for pain control IV fluids and re-evaluation. He will consult the hospitalist for admission. I have given handoff for this patient to my attending Dr. Leigh. Differential Dx:Considerations: Include: AAA, Angina/TN, Aortic dissection, Appendicitis, Bowel obstruction, Cholangitis, Cholelithasis, Constipation, Diverticular disease, Esophageal rupture, Esophagitis, Gastritis/PUD, Gastroenteritis, GI hemorrhage, Hernia, Hepatitis, Inflammatory BD, Ischemic bowel, Pancreatitis, Porphyria, Testicular torsion, Trauma, intraabdominal, Urinary obstruction, Urinary tract infection, Urolithiasis, Other Departure Disposition: ADMITTED INPATIENT Impression: Primary Impression: Renal colic Additional Impressions: Renal calculi Uncontrolled pain Nausea & vomiting Discharge Instructions: Kidney Stones, Renal Colic Additional Instructions: Was discharged from the hospital on Sunday after being admitted for renal calculi and pain management. Patient presents again today with flank pain likely secondary to renal colic from likely non-obstructed non infected kidney stone. Patient reports that his pain is uncontrolled in the due to his nausea and vomiting he has been unable to keep down fluids and therefore his urine output has greatly diminished. Given history, exam, and work up I have patient's presentation is an exacerbation of previous symptoms and patient has not passed the renal stone and now has complication of dehydration nausea and uncontrolled pain. I have low suspicion for atypical appendicitis, genital torsion, acute cholecystitis, AAA, infected obstructed stone, pyelonephritis, or other emergent intraabdominal pathology. IV access established fluids administered. Pain treated in ED with Toradol Dilaudid little improvement. Patient patient appropriate for readmission at this time due to need for pain control IV fluids and re-evaluation. He will consult the hospitalist for admission. Referrals: NO PRIMARY CARE PROVIDER (PCP) Education Educated: Patient Educated regarding: diagnosis, treatment, prognosis, need for follow up Signature Scribe Signature: A Attestation: Scribed for Dunia Bear by BROOKE Delarosa . 02/02/25 01:30 DUNIA BEAR Feb 02, 2025 01:28
[2025-02-02] MEDS: ondansetron/PF 4mg/2ml inj IV ONE (01:33)
[2025-02-02] MEDS ORDERED: potassium Cl 40MEQ/1/2NS 520ml 520 ML IV PRN (01:40)
[2025-02-02] MEDS ORDERED: magnesium hydroxide 30ml (MOM) UD suspension PO PRN (01:40)
[2025-02-02] MEDS ORDERED: magnesium sulf-water 4G/100mL 100 ML IV PRN (01:40)
[2025-02-02] MEDS ORDERED: magnesium Cl slow-release 64mg tablet PO PRN (01:40)
[2025-02-02] MEDS ORDERED: HYDROcodone/acetaminophen 5mg/325mg tablet PO PRN (01:40)
[2025-02-02] MEDS ORDERED: potassium Cl 20 mEq SR tablet PO PRN ×2 (01:40)
[2025-02-02] MEDS ORDERED: mag hydrox/Alum hydrox/simeth 30ml oral suspension PO PRN (01:40)
[2025-02-02] MEDS ORDERED: magnesium sulf-water 2g/50mL 50 ML IV PRN (01:40)
[2025-02-02] MEDS: normal saline 1000ml 1,000 ML IV SCH (01:53)
--- NOTE | 2025-02-02 02:38 | HISTORY AND PHYSICAL-Residence ---
History & Physical Providers to CC Resident Creating Document: KEVYN POST, RES CC: MEAGAN KUMAR MD ~ History of Present Illness Reason for Admit\Complaint: Lumbar pain History of Present Illness A 44-year-old male with no PMH presented to the ED in view of gradual worsening of left lumbar pain since last Sunday. Patient states that he has left lumbar pain radiating to the anterior abdomen in the left side onto the umbilicus with a severity of 8/10 stabbing in type. Patient came in Sunday to the ER and was admitted last week, when he was seen by urologist and thinks Outpatient follow up could be done. Patient presented back to the ED in view of no improvement in pain. Patient denies burning micturition, fever and chills. Patient had multiple episodes of prior stones with no analysis. Patient does not have a urologist here. Patient denies fever or chills. Allergies: Coded Allergies: morphine (Verified Allergy, Unknown, PSYCHOSIS, 02/01/25) Home Medications Home Medications Active [place] 5/325 MG (Acetaminophen/Hydrocodone Bitart) 5 Mg/325 Mg Tablet 1-2 Tab PO Q4-6 HOURS PRN Flomax* (Tamsulosin HCl) 0.4 Mg Cap.sr.24h 1 Cap PO DAILY Past Medical History Past Medical History None Past Surgical History Surgical History Comment Cholecystectomy Sinus surgery Past Social History Social History Comment Primary care: +stage No specialists Smoked one pack of cigarettes per day for two years, quit 20 years ago Does not consume alcohol, marijuana or illicit drugs Lives at home with family 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 Chest pressure, chest discomfort, palpitations, syncope, lower extremity edema, paroxysmal nocturnal dyspnea Respiratory: No Shortness of breath and cough present, No hemoptysis Gastrointestinal: Pain in the lumbar region radiating to umbilicus, Normal appetite. No nausea, vomiting, diarrhea, constipation, hematemesis, bloating, melena or fresh blood Musculoskeletal: No edema Integumentary: No change in skin, hair, nails. No swelling, bruising, abrasions Neurologic: No headache, neck pain, numbness or tingling of the extremities, weakness Psychiatric: No delusions, depression, loss of interest in normal activity or change in sleep pattern, hallucinations, suicidal ideations Endocrine: No fatigue, weakness, polydipsia, polyuria, change in appetite, heat or cold intolerance, sweating, dry skin Exam Vitals: Vital Signs Date Time Temp Pulse Resp B/P (MAP) Pulse Ox O2 Delivery O2 Flow Rate FiO2 02/02/25 02:29 73 16 153/85 (107) 94 0 02/01/25 19:22 96.8 General: General: Moderately build middle-aged man, Alert, awake, oriented, in acute distress HEENT: PERRLA, no icterus, pallor, lymphadenopathy, carotid bruit Respiratory system: Bilateral vesicular breath sounds heard, no adventitious breath sounds CVS: S1-S2 heard, no murmurs/rubs/gallop GI: Tenderness in the lower back and in the umbilical region, Soft, no organomegaly, no guarding/rigidity, bowel sounds present Neuro: No focal neurological deficits present Extremities: No edema cyanosis clubbing/deformities Skin: Warm and dry Diagnostic Data Last Recorded Lab Results: 02/01/25 1939 02/02/25 0222 Advance Care Planning Advanced Care plannin - 30 Minutes (I spent 20 minutes discussing various resuscitative measures and the patient decided to be full code) Additional Plan Assessment: 44-year-old male with no PMH presented to the ED in view of left lower lumbar pain radiating to the abdomen. Patient is admitted for the evaluation and management of left renal obstructive calculus with hydronephrosis. Plan: Recurrent left renal obstructive calculus Left hydronephrosis History of renal calculi CT abdomen pelvis: Obstructing distal left ureteric calculus measuring 4 mm resulting in mild hydronephrosis. CT abdomen pelvis (01/29): Moderate left hydroureteronephrosis and perinephric inflammatory change secondary to a partially obstructing distal ureteral calculus measuring approximately 5 mm in diameter. Additional punctate nonobstructive bilateral pelvocaliceal calculi noted. No evidence of UTI Urinalysis normal Pain management p.r.n., IV fluids at 100 cc/hour IV Rocephin 1 g q.day my tamsulosin 0.4 mg p.o. HS Urology consult in a.m. ELISABETH on CKD stage IIIB Elevated creatinine Baseline creatinine: 1.42, EGFR: 40 Continue to monitor BMP Continue IV fluid resuscitation History of polysubstance use Meth, cocaine, marijuana, LSD Follow up with U tox Claims that he is clean since 2000 Code status: Full code Diet: NPO/clear liquid DVT prophylaxis: SCD Disposition: Admit to ortho, urology consult in a.. Kevyn Post MD Internal Medicine, PGY 2 Date of Service: Feb 02, 2025 Billing Provider: MEAGAN KUMAR MD Addendum left renal obstructive hydro with stone - urology consult - ceftriaxone IV IM 3 KEVYN POST, RES Feb 02, 2025 02:38 MEAGAN KUMAR MD Feb 02, 2025 04:11
[2025-02-02] MEDS: CefTRIAXone/D5W-Rocephin 1gm 50 ML IV SCH (02:42)
[2025-02-02] MEDS: docusate sod 100mg capsule PO SCH (07:20)
[2025-02-02] MEDS: ondansetron/PF 4mg/2ml inj IV PRN (07:20)
[2025-02-02] MEDS: K and/or MAG REPLACEMENT MC SCH (10:05)
--- NOTE | 2025-02-02 10:44 | ELECTROCARDIOGRAPH REPORT ---
[facility] Test Date: 2025-02-02 Test Time: 10:40:44 Pat Name: RONY LEIGH Department: [facility] 3 Patient ID: [id number] Room: [place] [id number] B Gender: M Cmo & President: : 1980 Requested By: BRIGITTE JACQUES Order Number: [id number] Reading MD: Dr. MARQUIS Renteria Measurements Intervals Zenia Rate: 64 P: 24 LA: 147 QRS: 18 QRSD: 108 T: 2 QT: 412 QTc: 425 Interpretive Statements Sinus rhythm Abnormal R-wave progression, early transition Electronically Signed On 02-02-2025 17:11:[address] MARQUIS Renteria Please click the below link to view image of tracing.
[2025-02-02] MEDS: dextrose 50%-water 50ml dispensing syringe IV ONE (15:17)
[2025-02-02] MEDS ORDERED: hydrALAZINE 20mg/ml inj. IV PRN (15:50)
[2025-02-02] MEDS ORDERED: labetalol 20mg/4ml (5mg/ml) syringe IV PRN (15:50)
[2025-02-02] MEDS ORDERED: fentaNYL/PF 50MCG/1 ML 2ML syringe IV PRN ×2 (15:50)
[2025-02-02] MEDS ORDERED: iohexol 300mg/ml 100ml inj. ONE (15:50)
[2025-02-02] MEDS ORDERED: HYDROmorphone/PF 0.2 MG/ML SYRINGE IV PRN ×2 (15:50)
[2025-02-02] MEDS ORDERED: ondansetron/PF 4mg/2ml inj IV PRN (15:50)
[2025-02-02] MEDS ORDERED: midazolam 1 mg/ML 2ml injection ONE (16:35)
[2025-02-02] MEDS ORDERED: fentaNYL/PF 50MCG/1 ML 2ML syringe ONE (16:35)
--- NOTE | 2025-02-02 16:50 | POSTOPERATIVE RECORDS ---
Postoperative Records Providers to CC ~ Date of Procedure: Feb 02, 2025 Problems: (1) Left ureteral stone Post-Operative Diagnosis SAME as PRE-Op Procedure Performed left ureteroscopic stone with laser and stent placement Surgeon: Sridhar Santos none Anesthesiologist: Angela Gilliland Type of Anesthesia: General Findings: dictated Complications none Prosthetics\Implants used: stent Estimated Blood Loss: none Specimen Removed: stone Description of Procedure: dictated REESE ROSARIO MD Feb 02, 2025 16:50
[2025-02-02] MEDS ORDERED: dexamethasone sod phosphate 4mg/ml inj. ONE (16:51)
[2025-02-02] MEDS ORDERED: propofol inj 20 ML IV ONE (16:51)
[2025-02-02] MEDS ORDERED: ondansetron/PF 4mg/2ml inj ONE (16:51)
[2025-02-02] MEDS ORDERED: LIDOcaine 2% (20mg/ml) 5ml vial ONE (16:52)
[2025-02-02] MEDS: ringers solution, lacted 1,000 ML IV SCH (17:29)
[2025-02-02] MEDS: acetaminophen 1,000mg/100ml IV 100 ML IV PRN (17:46)
--- NOTE | 2025-02-02 18:43 | PROGRESS NOTE ---
Daily Progress Note Providers to CC ~ Antibiotic Timeout Antibiotic Ordered?: Yes Subjective I saw the patient prior to going for a cystoscopy the patient had some mild abdominal discomfort was overall doing relatively well. No acute complaints Objective Vital Signs Date Time Temp Pulse Resp B/P (MAP) Pulse Ox O2 Delivery O2 Flow Rate FiO2 02/02/25 18:10 76 14 137/79 (98) 94 Room Air 0.0 02/02/25 17:29 97.7 Result Diagram: 02/01/25 1939 02/02/25 0222 Gen. No acute distress alert and oriented 4 Lungs clear to ascultation bilaterally, no wheezes rales or rhonchi appreciated Heart normal sinus rhythm no murmurs rubs or clicks noted Abdomen soft nontender bowel sounds are normoactive Lower extremities no clubbing cyanosis, nor edema appreciated bilaterally Problem\Assessment\Plan Problems/Diagnosis: (1) Left ureteral stone Recurrent left renal obstructive calculus Left hydronephrosis History of renal calculi CT abdomen pelvis: Obstructing distal left ureteric calculus measuring 4 mm resulting in mild hydronephrosis. CT abdomen pelvis (01/29): Moderate left hydroureteronephrosis and perinephric inflammatory change secondary to a partially obstructing distal ureteral calculus measuring approximately 5 mm in diameter. Additional punctate nonobstructive bilateral pelvocaliceal calculi noted. No evidence of UTI Urinalysis normal Pain management p.r.n., IV fluids at 100 cc/hour IV Rocephin 1 g q.day my tamsulosin 0.4 mg p.o. HS I discussed the case with urologist Dr. Waller who had recently evaluated the patient in house and has since subsequently taking the patient for laser ablation of a kidney stone and stent placement ELISABETH on CKD stage IIIB Elevated creatinine Baseline creatinine: 1.42, EGFR: 40 Continue to monitor BMP Continue IV fluid resuscitation Date of Service: Feb 02, 2025 Billing Provider: BRIGITTE JACQUES DO Common Visit Codes: NOT BILLABLE (Admitted after midnight to be billed by coater associate) BRIGITTE JACQUES DO Feb 02, 2025 18:43
--- NOTE | 2025-02-03 00:54 | OPERATIVE REPORT ---
DATE OF SURGERY: 02/02/2025 DICTATING PHYSICIAN: Rizwan Waller MD PREOPERATIVE DIAGNOSIS: Left distal ureteral stone. POSTOPERATIVE DIAGNOSIS: Left distal ureteral stone. OPERATIONS PERFORMED: * Left ureteroscopic stone extraction with laser. * Left ureteral stent placement. SURGEON: Rizwan Waller MD ANESTHESIOLOGIST: Dr. Gilliland. ANESTHESIA: General. INDICATIONS: A 44-year-old male with symptomatic left distal ureteral calculus. He was initially admitted and sent home, but returned with pain and vomiting, and now presents for definitive intervention. DESCRIPTION OF PROCEDURE: After obtaining informed consent, the patient was taken to the operating room and general anesthesia was induced. He was then placed in a dorsal lithotomy position and then genitals were prepped and draped in the usual fashion. The semi-rigid ureteroscope was advanced into the bladder and the left ureteral orifice was identified. With difficulty, a wire was pushed past the stone impacted into the left distal ureter. The stone appeared to be impacted based on the fact that there was still an obvious pyelogram from the previous IV contrast administration with hydroureteronephrosis down to the stone in the distal ureter. The wire was eventually pushed past the stone and with the aid of a second Glidewire, the ureteroscope was advanced up to the stone, which was highly mobile in the dilated portion of the ureter. It was thought to be too big for basket extraction, therefore laser lithotripsy was performed breaking it into 3 fragments, which were basket extracted and dropped into the bladder. Re-inspection revealed no stones in the ureter. I elected to leave a stent. The wire was left in dwelling and backloaded over the cystoscope and used to pass a 5-S[place] x 26-cm double-J stent with a nice coil in the kidney and bladder seen fluoroscopically and cystoscopically. The plans were to remove the stent in the office. The stones were seen in the bladder and attempted to be extracted through the cystoscope, but apparently were lost in the drapes somewhere, but the patient was thereby rendered stone-free. The stone composition appeared visually to be classic calcium oxalate monohydrate and a very hard stone. The patient was then awakened from general anesthesia having tolerated procedure well. COMPLICATIONS: None. ESTIMATED BLOOD LOSS: None. Rizwan Waller MD TID: [id number] RECEIPT: [id number] ISABEL/FRANCHESKA
[2025-02-03 02:00] VITALS: BP 125/68; PULSE 55; RESP 15; TEMP 98.5; O2SAT 96
[2025-02-03 05:28] LABS: MEAN PLATELET VOLUME 8.5 FL (7.4-10.4); RED CELL DISTRIBUTION WIDTH 12.7 % (11.5-14.5)
[2025-02-03 05:38] LABS: CREATININE 1.48 MG/DL (0.60-1.10); TOTAL CARBON DIOXIDE 28.1 MMOL/L (24-32); eCRCL 62 ML/MIN; eGFR 52 ML/MIN
[2025-02-03 06:59] VITALS: BP 124/50; PULSE 55; RESP 16; TEMP 98.8; O2SAT 97
--- NOTE | 2025-02-03 09:24 | HISTORY AND PHYSICAL ---
ADMIT DATE: 02/02/2025 DICTATING PHYSICIAN: Rizwan Waller MD HISTORY OF PRESENT ILLNESS: This is a 44-year-old male known to me previously from previous admission for a left distal ureteral stone. He was sent home a couple of days ago only to return with nausea and vomiting and pain. CT scan reveals a persistent stone and the patient is recommended to undergo surgery this time around. ASSESSMENT: Pain secondary to a left distal ureteral calculus, which has failed conservative management. PLAN: NPO. Left ureteroscopic stone extraction with laser lithotripsy and stent placement. Informed consent was obtained. Risks, alternatives, benefits, and complications were discussed. The patient understands and wished to proceed. Rizwan Waller MD TID: [id number] RECEIPT: [id number] ISABEL/LESVIA
[2025-02-03 11:06] VITALS: BP 124/79; PULSE 74; RESP 15; TEMP 98; O2SAT 96
[2025-02-03] MEDS ORDERED: CEPH500C2 PO (11:29)
--- NOTE | 2025-02-03 20:49 | DISCHARGE SUMMARY ---
Discharge Summary Providers to CC ~ Discharge Summary Admission Diagnosis: INTRACTABLE PAIN 2/2 OBSTRUCT LEFT RENAL CALCULUS W/HYDRONEPHROSIS Hospital Course DATE OF ADMISSION: 02/02/2025 DATE OF DISCHARGE: 02/03/2025 Discharge Diagnosis\\Comment: Recurrent left renal obstructive calculus with left hydronephrosis, ELISABETH on top of chronic kidney disease Operations\\Procedures: * Left ureteroscopic stone extraction with laser. * Left ureteral stent placement. Consultants: Dr. Rizwan Waller urologist Complications: None Condition on DC: Stable New Medications: Cephalexin Monohydrate (Cephalexin) 500 Mg Capsule 1 CAP PO Q8H, #12 CAP Continued Medications: Hydrocodone Bit/Acetaminophen 5/325 MG ([place] 5/325 MG) 5 Mg/325 Mg Tablet 1-2 TAB PO Q4-6 hours PRN for moderate or severe pain, #16 TAB Tamsulosin Hcl* (Flomax*) 0.4 Mg Cap.sr.24h 1 CAP PO DAILY, #10 CAP Discharge Summary: The patient is admitted by resident physician SIENNA Strattno , under the supervision of MEAGAN Guillory MD with the following HPI:"A 44-year-old male with no PMH presented to the ED in view of gradual worsening of left lumbar pain since last Sunday. Patient states that he has left lumbar pain radiating to the anterior abdomen in the left side onto the umbilicus with a severity of 8/10 stabbing in type. Patient came in Sunday to the ER and was admitted last week, when he was seen by urologist and thinks Outpatient follow up could be done. Patient presented back to the ED in view of no improvement in pain. Patient denies burning micturition, fever and chills. Patient had multiple episodes of prior stones with no analysis. Patient does not have a urologist here. Patient denies fever or chills." CT scan of the abdomen and pelvis demonstrated the following findings: Obstructing distal left ureteric calculus measuring 4 mm resulting in mild hydronephrosis. I spoke with Dr. Waller urologist who took the patient for a left ureteroscopic stone extraction with laser and stent placement on the . The patient felt significantly improved the following morning and felt ready to be discharged. The patient is discharged home with Keflex 500 mg one tablet p.o. q.8 hours for additional four days the patient did receive IV Rocephin during hospitalization and recommendation of the follow up with Dr. Waller urologist in 3-4 weeks. I recommended the patient buy an [id number] probiotic to avoid antibiotic induced colitis (C difficile enterocolitis) as well. *Problems/Diagnosis: (1) Left ureteral stone Total Time Spent on D/C: Up to 30 Minutes Date of Service: Feb 03, 2025 Billing Provider: BRIGITTE JACQUES DO Common Visit Codes: 77864-QLF/OBS DISCH DAY <30MIN BRIGITTE JACQUES DO Feb 03, 2025 20:49
== END 2025-02-03 13:29 | disposition home or self-care (01) | DRG 661 ==
LOC: ER 19:13 → ED HOLD 02-02 01:12 → SUR 3N 02-02 06:37
PROVIDERS: ADMIT Internal Medicine Critical Care Medicine; ATTEND Family Medicine
PROC: BW211ZZ Computerized Tomography (CT Scan) of Abdomen and Pelvis using Low Osmolar Contrast (ICD-10-PCS; 2025-02-01)
PROC: 0T778DZ Dilation of Left Ureter with Intraluminal Device, Via Natural or Artificial Opening Endoscopic (ICD-10-PCS; 2025-02-02)
PROC: BT1F1ZZ Fluoroscopy of Left Kidney, Ureter and Bladder using Low Osmolar Contrast (ICD-10-PCS; 2025-02-02)
PROC: 0TC78ZZ Extirpation of Matter from Left Ureter, Via Natural or Artificial Opening Endoscopic (ICD-10-PCS; principal; 2025-02-02 16:26)
DX: N13.2 Hydronephrosis with renal and ureteral calculous obstruction (principal); N17.9 Acute kidney failure, unspecified; N18.32 Chronic kidney disease, stage 3b; Z87.442 Personal history of urinary calculi; Z88.0 Allergy status to penicillin; Z87.891 Personal history of nicotine dependence; Z88.5 Allergy status to narcotic agent
CPT/HCPCS: 96361; 96374; 96375; 99285; Z7506; Z7508; 36415; 74177; 76000; 80048; 80053; 81001; 82948; 83690; 83735; 84132; 85025; 87081; 93005; A4618; C1769; C2617; G0378; J0131; J0690; J0696; J0780; J1100; J1171; J1885; J2003; J2250; J2405; J2704; J3010; J3490; J7030; J7120; Q9967